=== PATIENT | male | born 2000 | race Caucasian/White ===

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

== ENCOUNTER 2022-04-16 02:29 | Emergency (ER) | payer BC | END 2022-04-16 04:18 | LOC: MW.ED 02:29 | DX: M25.512 Pain in left shoulder (principal); R04.0 Epistaxis; W50.0XXA Accidental hit or strike by another person, initial encounter | CPT/HCPCS: 73030-26-LT; 73030-LT; 99283 ==

== ENCOUNTER 2023-04-03 12:41 | Emergency (ER) | payer BC | END 2023-04-03 15:45 | disposition home or self-care (01) | LOC: MW.ED 12:41 | DX: M53.3 Sacrococcygeal disorders, not elsewhere classified (principal) | CPT/HCPCS: 51798; 72100; 72100-26; 72220; 72220-26; 99283 ==

== ENCOUNTER 2023-10-04 12:45 | Emergency (ER) | payer SELFPAY ==
[2023-10-04 14:10] LABS: CORONAVIRUS COVID-19 NAA NEGATIVE (NEGATIVE); INFLUENZA A NAA NEGATIVE (NEGATIVE); INFLUENZA B NAA NEGATIVE (NEGATIVE); RESPIRATORY SYNCYTIAL VIR NAA NEGATIVE (NEGATIVE)
[2023-10-04 14:34] LABS: BASOPHILS ABSOLUTE AUTO 0.02 K/uL (0.00-0.20); BASOPHILS PERCENT AUTO 0.4 % (0.0-1.0); EOSINOPHILS ABSOLUTE AUTO 0.04 K/uL (0.00-0.45); EOSINOPHILS PERCENT AUTO 0.7 % (0.0-6.0); HEMATOCRIT 48.3 % (42.0-52.0); HEMOGLOBIN 17.1 g/dL (14.0-18.0); IMMATURE GRAN ABSOLUTE AUTO 0.05 K/uL (0.00-0.05); IMMATURE GRAN PERCENT AUTO 0.9 % (0.0-0.4); LYMPHOCYTES ABSOLUTE AUTO 0.57 K/uL (1.00-4.80); MEAN CORPUSCULAR HEMOGLOBIN 32.3 pg (28.0-32.0); MEAN CORPUSCULAR HGB CONC 35.4 g/dL (32.0-36.0); MEAN CORPUSCULAR VOLUME 91.3 fL (83.0-99.0); MEAN PLATELET VOLUME 8.3 fL (9.4-12.4); MONOCYTES ABSOLUTE AUTO 1.12 K/uL (0.00-0.80); MONOCYTES PERCENT AUTO 19.6 % (0.0-8.0); NEUTROPHILS PERCENT AUTO 68.4 % (41.0-71.0); PLATELET COUNT,PLT 203 K/uL (150-400); RED BLOOD CELL COUNT 5.29 M/uL (4.52-5.90)
[2023-10-04 14:56] LABS: ALBUMIN 3.8 g/dL (3.4-5.0); CALCIUM 9.1 mg/dL (8.5-10.1); CARBON DIOXIDE,CO2 25.9 mmol/L (21.0-32.0); CREATININE 1.1 mg/dL (0.8-1.3); EST CRCL DRUG DOSING (CG) 107.12 mL/min; POTASSIUM,K 4.1 mmol/L (3.5-5.1); PROTEIN TOTAL,TP 7.5 g/dL (6.4-8.2)
[2023-10-04 14:57] LABS: BILIRUBIN TOTAL 0.4 mg/dL (0.2-1.0)
[2023-10-04] MEDS: Sodium Chloride 0.9% 1,000 ML IV ONE (15:02)
[2023-10-04] MEDS: Ondansetron 4 MG/2 ML SDV IVPUSH ONE ×2 (15:02→15:13)
[2023-10-04] MEDS: Sodium Chloride 0.9% 1,000 ML IV STA (15:13)
== END 2023-10-04 17:48 | disposition home or self-care (01) ==
LOC: MW.ED 12:45
DX: R19.7 Diarrhea, unspecified (principal); R05.9 Cough, unspecified; R11.2 Nausea with vomiting, unspecified
CPT/HCPCS: 0241U; 36415; 71046; 80053; 85025; 96361; 96374; 99284; J2405; J7030

== ENCOUNTER 2023-12-04 16:56 | Emergency (ER) | payer SELFPAY ==
[2023-12-04 17:29] LABS: BILIRUBIN,URINE NEGATIVE (NEGATIVE); COLOR,URINE YELLOW; GLUCOSE,URINE NEGATIVE (NEGATIVE); KETONES,URINE NEGATIVE (NEGATIVE); LEUKOCYTE ESTERASE,URINE NEGATIVE (NEGATIVE); NITRITE,URINE NEGATIVE (NEGATIVE); OCCULT BLOOD,URINE NEGATIVE (NEGATIVE); PROTEIN,URINE NEGATIVE (NEGATIVE); UROBILINOGEN,URINE 0.2 EU/dL (<2.0)
[2023-12-04 17:34] LABS: APPEARANCE,URINE SLT CLOUDY
[2023-12-04] MEDS: Ketorolac 30 MG/ML SDV IVPUSH ONE (17:34)
[2023-12-04] MEDS: Sodium Chloride 0.9% 1,000 ML IV ONE (17:34)
[2023-12-04] MEDS: methylPREDNISolone Sodium Succinate 125 MG/2 ML SDV IVPUSH ONE (17:34)
[2023-12-04 17:35] LABS: BASOPHILS ABSOLUTE AUTO 0.07 K/uL (0.00-0.20); BASOPHILS PERCENT AUTO 0.9 % (0.0-1.0); EOSINOPHILS ABSOLUTE AUTO 0.11 K/uL (0.00-0.45); EOSINOPHILS PERCENT AUTO 1.4 % (0.0-6.0); HEMATOCRIT 46.5 % (42.0-52.0); IMMATURE GRAN ABSOLUTE AUTO 0.08 K/uL (0.00-0.05); LYMPHOCYTES ABSOLUTE AUTO 2.39 K/uL (1.00-4.80); LYMPHOCYTES PERCENT AUTO 30.9 % (24.0-44.0); MEAN CORPUSCULAR HEMOGLOBIN 31.2 pg (28.0-32.0); MEAN CORPUSCULAR HGB CONC 34.4 g/dL (32.0-36.0); MEAN CORPUSCULAR VOLUME 90.6 fL (83.0-99.0); MEAN PLATELET VOLUME 8.3 fL (9.4-12.4); MONOCYTES ABSOLUTE AUTO 0.93 K/uL (0.00-0.80); NEUTROPHILS ABSOLUTE AUTO 4.16 K/uL (1.80-7.70); NEUTROPHILS PERCENT AUTO 53.8 % (41.0-71.0); PLATELET COUNT,PLT 277 K/uL (150-400); RED BLOOD CELL COUNT 5.13 M/uL (4.52-5.90); WHITE BLOOD CELL COUNT,WBC 7.74 K/uL (3.9-11.3)
[2023-12-04 18:28] LABS: BILIRUBIN TOTAL 0.3 mg/dL (0.2-1.0); CARBON DIOXIDE,CO2 28.5 mmol/L (21.0-32.0); EST CRCL DRUG DOSING (CG) 120.65 mL/min; PROTEIN TOTAL,TP 7.9 g/dL (6.4-8.2)
== END 2023-12-04 19:01 | disposition home or self-care (01) ==
LOC: MW.ED 16:56
DX: M54.42 Lumbago with sciatica, left side (principal); Z75.8 Other problems related to medical facilities and other health care
CPT/HCPCS: 36415; 80053; 81003; 83690; 85025; 96361; 96374; 96375; 99284; J1885; J2919; J7030

== ENCOUNTER 2024-02-13 17:14 | Emergency (ER) | payer BC ==
[2024-02-13] MEDS: Ketorolac 60 MG/2 ML SDV IM ONE (18:44)
[2024-02-13] MEDS: Cyclobenzaprine 10 MG Tab PO ONE (18:44)
== END 2024-02-13 19:16 | disposition home or self-care (01) ==
LOC: MW.ED 17:14
DX: S29.012A Strain of muscle and tendon of back wall of thorax, initial encounter (principal); Z75.8 Other problems related to medical facilities and other health care; X50.0XXA Overexertion from strenuous movement or load, initial encounter
CPT/HCPCS: 96372; 99283; A9270; J1885

== ENCOUNTER 2024-07-03 21:40 | Emergency (ER) | payer BC ==
[2024-07-04] MEDS: predniSONE 20 MG Tab PO ONE (00:31)
== END 2024-07-04 00:44 | disposition home or self-care (01) ==
LOC: MW.ED 21:40
DX: J40 Bronchitis, not specified as acute or chronic (principal)
CPT/HCPCS: 71045; 99284; A9270

== ENCOUNTER 2024-08-13 11:13 | Emergency (ER) | payer BC | END 2024-08-13 12:49 | disposition home or self-care (01) | LOC: MW.ED 11:13 | DX: H66.93 Otitis media, unspecified, bilateral (principal); Z75.8 Other problems related to medical facilities and other health care; Z79.899 Other long term (current) drug therapy | CPT/HCPCS: 87428-QW; 87651-QW; 99283 ==

== ENCOUNTER 2024-10-08 06:34 | Emergency (ER) | payer BC | END 2024-10-08 07:36 | disposition home or self-care (01) | LOC: MW.ED 06:34 | DX: J01.10 Acute frontal sinusitis, unspecified (principal) | CPT/HCPCS: 99282; 99283 ==

== ENCOUNTER 2025-01-07 12:58 | Emergency (ER) | payer BC ==
[2025-01-07] MEDS: Acetaminophen/HYDROcodone 325-5 MG Tab PO ONE (14:41)
== END 2025-01-07 15:43 | disposition home or self-care (01) ==
LOC: MW.ED 12:58
DX: S01.411A Laceration without foreign body of right cheek and temporomandibular area, initial encounter (principal); S05.11XA Contusion of eyeball and orbital tissues, right eye, initial encounter; Y04.8XXA Assault by other bodily force, initial encounter
CPT/HCPCS: 70450; 70486; 72125; 99284; A9270; 99282